=== PATIENT | female | born 1965 | race Two or more races ===

== ENCOUNTER 2021-11-06 13:53 | Emergency (ER) | payer OTHER ==
[~2021-11-06] VITALS: Ht 172.7 cm; Wt 129.3 kg
[2021-11-06] MEDS ORDERED: FENOFIBRATE50 MG PO (14:15)
[2021-11-06] MEDS ORDERED: HYZAAR 100-251 EACH PO (14:15)
[2021-11-06] MEDS ORDERED: PEPCID AC10 MG PO (14:16)
[2021-11-06] MEDS ORDERED: LYRICA150 MG PO (14:16)
[2021-11-06] MEDS ORDERED: BUPROPION XL450 MG PO (14:16)
[2021-11-06] MEDS ORDERED: CARDIZEM CD180 M1 PO (14:17)
[2021-11-06] MEDS ORDERED: RASUVO 1010 MG/0.2 SQ (14:17)
[2021-11-06] MEDS ORDERED: CELEBREX200MG PO (14:17)
[2021-11-06] MEDS ORDERED: SINGULAIR10 MG PO (14:17)
[2021-11-06] MEDS ORDERED: SYNTHROID200 MCG PO (14:18)
== END 2021-11-06 15:54 | disposition home or self-care (01) ==
LOC: ER 13:53
DX: M54.89 Other dorsalgia (principal); Z88.6 Allergy status to analgesic agent; Z88.8 Allergy status to other drugs, medicaments and biological substances

== ENCOUNTER 2022-02-04 09:23 | Outpatient (CLI) | payer OTHER ==
[~2022-02-04 09:23] MED LIST: BUPROPION XL450 MG PO; CARDIZEM CD180 M1 PO; CELEBREX200MG PO; FENOFIBRATE50 MG PO; HYZAAR 100-251 EACH PO; LYRICA150 MG PO; PEPCID AC10 MG PO; RASUVO 1010 MG/0.2 SQ; SINGULAIR10 MG PO; SYNTHROID200 MCG PO
== END 2022-02-04 09:25 | disposition home or self-care (01) ==
LOC: NUCLEAR 09:23
PROVIDERS: ATTEND Neurological Surgery
DX: M81.0 Age-related osteoporosis without current pathological fracture (principal); M54.2 Cervicalgia; M54.59 Other low back pain; Z88.5 Allergy status to narcotic agent; Z88.6 Allergy status to analgesic agent; Z91.040 Latex allergy status; Z88.8 Allergy status to other drugs, medicaments and biological substances

== ENCOUNTER 2022-02-04 10:24 | Outpatient (CLI) | payer OTHER | END 2022-02-04 10:32 | disposition home or self-care (01) | LOC: RAD 10:24 | PROVIDERS: ATTEND Neurological Surgery | DX: M54.2 Cervicalgia (principal); M54.50 Low back pain, unspecified ==

== ENCOUNTER 2022-02-18 10:55 | Outpatient (CLI) | payer OTHER | END 2022-02-18 11:09 | disposition home or self-care (01) | LOC: RAD 10:55 → SONOGRAMA 10:55 → RAD 11:09 | PROVIDERS: ATTEND Neurological Surgery | DX: M25.551 Pain in right hip (principal); M25.552 Pain in left hip ==